=== PATIENT | male | born 1940 | race Caucasian/White ===

== ENCOUNTER 2019-07-23 23:31 | Inpatient (IN) | payer MEDICARE, BC ==
[2019-07-24 00:41] LABS: #Eosinphils 0.1 thou/uL (0.0-0.7); #Lymphocytes 1.3 thou/uL (1.20-3.40); #Monocytes 0.6 thou/uL (0.11-0.59); #Neutrophils 8.3 thou/uL (1.40-6.50); %Basophils 0.1 % (0.0-1.0); %Eosinophils 0.7 % (0.0-10.0); %Lymphocytes 12.8 % (21.0-51.0); %Monocytes 6.2 % (0.0-10.0); %Neutrophils 80.2 % (42.0-75.0); Hemoglobin 14.1 g/dL (14.0-18.0); Mean Corpuscular HGB CONC 33.5 g/dL (32.0-36.0); Mean Corpuscular Hemoglobin 30.9 pg (27.0-31.0); Mean Corpuscular Volume 92.2 fL (78.0-98.0); Mean Platelet Volume 6.4 fL (7.4-10.4); Platelet Count 216 thou/uL (130-400); Red Blood Cell (RBC) Count 4.55 mill/uL (4.70-6.10); White Blood Cell (WBC) Count 10.4 thou/uL (4.8-10.8)
[2019-07-24 00:48] LABS: Prothrombin Time 13.5 SEC (12.0-14.7)
[2019-07-24 00:49] LABS: PTT 28.9 SEC (22.9-36.1)
[2019-07-24 01:05] LABS: Magnesium 2.1 mg/dL (1.6-2.6); Phosphorus 2.9 mg/dL (2.3-4.7)
[2019-07-24 01:06] LABS: ALT (SGPT) 36 U/L (8-55); AST (SGOT) 24 U/L (5-34); Albumin 3.8 g/dL (3.4-4.8); Alkaline Phosphatase 142 U/L (40-110); Anion Gap 14 mmol/L (10-20); BUN (Urea Nitrogen) 22 mg/dL (8.4-25.7); Bilirubin, Total 0.7 mg/dL (0.2-1.2); Calc. Creatinine Clearance 0 mL/min (70-130); Calcium 9.2 mg/dL (7.8-10.44); Carbon Dioxide 21 mmol/L (23-31); Chloride 108 mmol/L (98-107); Estimated GFR-MDRD 56; Globulin 2.8 g/dL (2.4-3.5); Glucose 130 mg/dL (83-110); Potassium 4.3 mmol/L (3.5-5.1); Protein, Total 6.6 g/dL (5.8-8.1); Sodium 139 mmol/L (136-145)
[2019-07-24] MEDS ORDERED: Insulin Regular 300 UNITS/3 ML VIAL SC PRN ×2 (01:21)
[2019-07-24] MEDS ORDERED: Ondansetron ODT 4 MG TAB PO PRN (01:21)
[2019-07-24] MEDS ORDERED: Dextrose 50% Abboject 50 ML SYRINGE SLOW IVP PRN (01:21)
[2019-07-24] MEDS ORDERED: Morphine 2 MG/ML SYRINGE SLOW IVP PRN (01:21)
[2019-07-24] MEDS ORDERED: hydrALAZINE 20 MG/ML VIAL SLOW IVP PRN (01:21)
[2019-07-24] MEDS ORDERED: Dextrose 5% in Water 1,000 ML IV PRN (01:21)
[2019-07-24] MEDS ORDERED: Ondansetron PF 4 MG/2 ML Vial IVP PRN (01:21)
[2019-07-24] MEDS ORDERED: traMADol HCl 50 MG TAB PO PRN ×2 (01:27)
[2019-07-24] MEDS ORDERED: Sodium Chloride 0.9% 1,000 ML IV SCH (01:45)
[2019-07-24 02:34] VITALS: BMI 32.2
--- NOTE | 2019-07-24 02:48 | HP ---
This is Juanita Giordano NP dictating a report for Alejo Cancino DO. REQUESTING PHYSICIAN: Dr. Mitchell. CONSULTS: Orthopedic Surgery, Dr. Isaac. CHIEF COMPLAINT: Mechanical fall, right hip pain. HISTORY OF PRESENT ILLNESS: This is a 78-year-old gentleman with a history of Parkinson, hypertension, type 2 diabetes, and prostate cancer, who has had multiple recent falls within the last week. The patient lives at home with his and reports that he does not use any assistance to ambulate, but states he probably should use a cane when he ambulates. The patient has difficulty ambulating at times, states that his feet get to going too fast causing him to fall. The patient also had a fall 15 days ago in which he sustained a left clavicle fracture and rib fractures he was seen and treated by his his PCP Dr. Caba in [place]. The patient states he fell at least 12 times within the last week. He reports falling earlier today, presented to the emergency room in [place]. Initially, x-ray showed no abnormalities but the patient was unable to ambulate. CT without contrast of his pelvis was obtained and a right iliac wing fracture with acetabulum involvement was found. The patient was transferred to [facility] for further care. The patient states he bumped the right side of his head and had no loss of consciousness. The patient recalls falling and denies any chest pain, shortness of breath or dizziness prior to falling. The patient states that he ambulates without getting short of breath. The patient was walking and riding a stationary bike 30 minutes every day prior to him falling 15 days ago. A Menezes catheter was placed at [facility]. Nursing staff reports initially urine was clear and yellow. After arrival at [facility], ER nurse noticed blood-tinged urine. PAST MEDICAL HISTORY: Parkinson, hypertension, prostate cancer, and type 2 diabetes. 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 ALLERGIES: DENIES ANY DRUG ALLERGIES. MEDICATIONS: 1. Valsartan. 2. Flomax. 3. HCTZ. 4. Hydrocodone. 5. Bupropion. 6. Carbidopa/levodopa. 7. Pioglitazone, unknown doses. SOCIAL HISTORY: Denies alcohol use, denies drug use, denies tobacco use, lives at home with his . REVIEW OF SYSTEMS: A 10-point review of systems is negative unless otherwise indicated in the above HPI. PHYSICAL EXAMINATION: VITAL SIGNS: Temperature 98.2, blood pressure 118/75, pulse 90, respirations 17 , SpO2 of 98% on room air. GENERAL: Elderly gentleman, well-appearing, no acute distress. HEENT: Head is atraumatic and normocephalic. Pupils are equal. Mucous membranes moist. Oropharynx normal. NECK: No cervical spine tenderness. Trachea is midline. No JVD. Normal range of motion of neck. RESPIRATORY: Equal chest rise and fall, bilateral breath sounds clear. No wheezing, rales, or rhonchi. CARDIAC: Regular rate, regular rhythm, 3/6 systolic murmur. ABDOMEN: Soft, nontender, and nondistended. : Menezes catheter in place. Gross hematuria noted. EXTREMITIES: Moves all extremities. Distal pulses 2+ in all extremities. Sensation and movement intact. Right hip tenderness to palpation. Healing ecchymosis to the left shoulder and axilla. NEUROLOGIC: GCS 15. Fine tremors noted, worse in upper extremities. DIAGNOSTIC DATA: 12-lead EKG, sinus rhythm with first-degree AV block, no ST or T-wave abnormalities. Chest x-ray, left plural effusion. Brain CT impression no acute intracranial hemorrhage. Official reads pending. Pelvis CT with contrast pending. LABORATORY DATA: WBC 10.4, RBC 4.55, hemoglobin 14.1, hematocrit 42.0, platelets 216. PT 13.5, INR 1.0, APTT 28.9. Sodium 139, potassium 4.3, chloride 108, carbon dioxide 21, BUN 22, creatinine 1.24, estimated GFR 56, glucose 130, calcium 9.2, phosphorus 2.9, magnesium 2.1, total bilirubin 0.7, AST 24, ALT 36, alkaline phos 142. Urinalysis is pending. IMPRESSION: 1. Status post mechanical fall with multiple recent falls. 2. Right iliac wing fracture with involvement of the acetabulum. 3. Subacute left clavicle fracture and rib fractures, status post fall 15 days ago. 4. Gross hematuria. 5. Left plural effusion likely secondary to rib fractures. 6. History of Parkinson, hypertension, type 2 diabetes, and prostate cancer. PLAN: CT pelvis with contrast and head CT pending. Admit to the surgical floor. Waiting for Orthopedic Surgery to evaluate and make a plan. The patient will be n.p.o. after midnight with maintenance IV fluids, normal saline at 120 an hour. Mild insulin sliding scale. Pain control and pulmonary toilet. We will have Physical and Occupational Therapy evaluate and treat the patient tomorrow. Nursing staff to get with the patients today to get medication dosages. The plan was discussed with the patient who agrees. The plan will be discussed with the attending after this dictation. Job ID: [id number] [facility]
[2019-07-24 03:12] LABS: Bilirubin Negative (Negative); Blood, Urine Moderate (Negative); Clarity Hazy (Clear); Glucose, Urine (Dipstick) Negative (Negative); Leukocyte Trace (Negative); Nitrite Negative (Negative); Protein, Urine (Dipstick) > or equal to 300 mg/dL (Neg-Trace); Urobilinogen 0.2 mg/dL (Less than 2)
[2019-07-24 03:24] LABS: RBC/HPF Greater than 50 HPF (0-3)
[2019-07-24] MEDS: Acetaminophen 500 MG TAB PO SCH ×3 (04:11→19:10)
[2019-07-24] MEDS: Cyclobenzaprine 10 MG TAB PO PRN ×2 (04:12→19:39)
[2019-07-24 05:43] LABS: #Eosinphils 0.1 thou/uL (0.0-0.7); #Lymphocytes 1.4 thou/uL (1.20-3.40); #Monocytes 0.7 thou/uL (0.11-0.59); #Neutrophils 8.2 thou/uL (1.40-6.50); %Basophils 0.1 % (0.0-1.0); %Eosinophils 0.7 % (0.0-10.0); %Lymphocytes 13.4 % (21.0-51.0); %Monocytes 6.9 % (0.0-10.0); Hemoglobin 13.2 g/dL (14.0-18.0); Mean Corpuscular HGB CONC 34.4 g/dL (32.0-36.0); Mean Corpuscular Hemoglobin 31.4 pg (27.0-31.0); Mean Corpuscular Volume 91.3 fL (78.0-98.0); Mean Platelet Volume 6.7 fL (7.4-10.4); Platelet Count 199 thou/uL (130-400); RBC Distribution Width 11.9 % (11.5-14.5); Red Blood Cell (RBC) Count 4.22 mill/uL (4.70-6.10); White Blood Cell (WBC) Count 10.4 thou/uL (4.8-10.8)
[2019-07-24 05:59] LABS: Anion Gap 12 mmol/L (10-20); BUN (Urea Nitrogen) 19 mg/dL (8.4-25.7); Calc. Creatinine Clearance 73 mL/min (70-130); Calcium 8.8 mg/dL (7.8-10.44); Carbon Dioxide 23 mmol/L (23-31); Chloride 108 mmol/L (98-107); Estimated GFR-MDRD 59; Glucose 113 mg/dL (83-110); Potassium 4.3 mmol/L (3.5-5.1); Sodium 139 mmol/L (136-145)
--- NOTE | 2019-07-24 09:02 | CT ---
PRELIMINARY REPORT/[facility]/EMERGENCY AFTER HOURS PROCEDURE EXAM: CT Head, without Contrast DATE/ TIME: 07/24/2019, 1:48 AM INDICATION: Trauma, unwitnessed fall with right-sided head strike. H/O multiple falls within the . TECHNIQUE: Axial CT imaging was performed through the head without intravenous administration of con trast. Exam was performed using one or more of the following dose reduction techniques: automated e xposure control, adjustment of the mA and/or kV according to patient size, or use of iterative recons truction technique. COMPARISON: None. FINDINGS: There is no intracranial hemorrhage. Benign hyperostosis frontalis interna masks the degr ee of atrophy which is considered mild. There is no CT evidence of an acute infarct. There is no ma ss or mass effect. 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 Imaging begins at the mid maxillary level. Orbital structures are unremarkable. Cranial vault demonstrates no evidence o f fracture. Mastoid air cells are well-aerated. Visualized sinuses are clear. IMPRESSION: 1. CT imaging shows no acute intracranial abnormality. 2. Mild atrophy with intracranial ASVD. ELECTRONICALLY SIGNED BY: Marty Rodriguez DO Jul 24, 2019 1:55:19 AM CDT FINAL REPORT CT OF THE BRAIN WITHOUT CONTRAST: FINDINGS/IMPRESSION: I agree with the findings and impression given in the preliminary report per [facility] physici an. No evidence of acute intracranial abnormality.
--- NOTE | 2019-07-24 09:02 | CT ---
PRELIMINARY REPORT/[facility]/EMERGENCY AFTER HOURS PROCEDURE EXAM: CT Abdomen and CT Pelvis, with Contrast DATE/ TIME: 07/24/2019, 1:51 AM INDICATION: Trauma, unwitnessed fall. Right hip pain. H/O multiple falls within the last week. TECHNIQUE: Helical CT was performed through the abdomen and pelvis during the intravenous administra tion of 70 mL Isovue-370. GI contrast was not utilized. Coronal and sagittal reconstructions were g enerated and reviewed. Exam was performed using one or more of the following dose reduction techniqu es: automated exposure control, adjustment of the mA and/or kV according to patient size, or use of iterative reconstruction technique. COMPARISON: None. CT ABDOMEN and CT PELVIS FINDINGS: The initial images begins at the aortic sinotubular junction. Ao rtic valvular calcification is seen. Calcified atheroma in the right coronary artery is noted. Laye ring left pleural effusion measures 2 cm in depth. Mild subpleural atelectasis in the left lung base is noted. Right lung base is clear. There are acute fractures of the anterolateral aspect of the l eft 5th, 6th and 7th ribs. Healed bilateral rib fractures are noted. Small hiatal hernia is noted. I ntestinal tract and associated mesenteries show no acute pathology. The appendix is normal. Abdomin al aorta tapers normally; there is no retroperitoneal hemorrhage. Inferior vena cava is not flattene d. There is no solid visceral injury. Spleen measures 14.0 x 4.6 x 9.0 cm. Pancreas is moderately a trophic. Gallbladder is unremarkable. Liver and adrenal glands have a normal appearance. Left kidn ey has two small calyceal calculi measuring up to 4 mm. Right kidney has a 3 mm calyceal calculus in the upper pole. Right kidney also has two cysts with the largest measuring 5.1 x 4.1 x 4.4 cm. Pros whitaker gland measures 5.3 cm in greatest transaxial dimension. Its central portion protrudes upwardly into the bladder. A Menezes catheter is indwelling. There appears to be some blood subjacent to the F oley bulb. Perivesicular retroperitoneal stranding is seen. This is due to a nondisplaced, intra-ar ticular fracture of the right innominate bone with the fracture line through the acetabulum. A small amount of presacral edema fluid is seen. Three cannulated screws are noted within each proximal fem ur. The spine shows marked lumbar facet arthropathy. IMPRESSION: 1. Nondisplaced intra-articular fracture of the right innominate bone. 2. Left rib fractures. 3. Bilateral nonobstructing nephrolithiasis. 4. Small left pleural effusion. 5. Mild prostatomegaly. 6. Mild splenomegaly. 7. No evidence of solid or hollow visceral injury. ELECTRONICALLY SIGNED BY: Marty Rodriguez DO Jul 24, 2019 2:17:14 AM CDT FINAL REPORT CT ABDOMEN AND PELVIS WITH IV CONTRAST: I agree with the preliminary report given by [facility]. There are also fractures involving th e right superior and inferior pubic rami and old healed fractures of the left inferior pubic ramus.
[2019-07-24] MEDS ORDERED: Iopamidol-370 76% 500 ML 1 ML ONE (09:23)
--- NOTE | 2019-07-24 09:46 | RAD ---
PORTABLE CHEST 1 VIEW: DATE: 07/24/2019. TIME: 12:25 AM. HISTORY: Fall with trauma to the right side of the head and right-sided head pain. FINDINGS/IMPRESSION: The heart size is prominent. A small left pleural effusion is noted. No lobar consolidation, pneumo thoraces, or right pleural effusion is seen. There are postop changes in the right shoulder. A frac ture of the left clavicle is seen. CODE T
[2019-07-24] MEDS ORDERED: Bupropion 150 MG SR TAB PO SCH (10:00)
[2019-07-24] MEDS ORDERED: Carbidopa/Levodopa 25-250 mg Tablet PO SCH ×2 (10:00→21:00)
[2019-07-24] MEDS ORDERED: Tamsulosin HCl 0.4 MG CAP PO SCH (10:00)
[2019-07-24] MEDS ORDERED: Hydrochlorothiazide 25 MG TAB PO SCH (10:00)
[2019-07-24] MEDS ORDERED: Valsartan 80 MG TAB PO SCH (10:00)
[2019-07-24] MEDS: Senokot S 8.6-50 MG TAB PO SCH ×2 (10:17→19:40)
[2019-07-24] MEDS: Polyethylene Glycol 3350 17 GM Packet PO SCH ×2 (10:17→10:31)
--- NOTE | 2019-07-24 11:53 | CON ---
DATE OF CONSULTATION: 07/24/2019 This is Randi Moore PA-C dictating a report for Lincoln Bledsoe MD. REQUESTING PHYSICIAN: Trauma Services. CONSULTING PHYSICIAN: Dr. Lincoln Bledsoe. REASON FOR CONSULTATION: Right acetabulum fracture. HISTORY OF PRESENT ILLNESS: This is a 78-year-old gentleman with a history of Parkinson disease, who has had multiple recent falls within the last week. The patient lives at home with his and reports he does not normally use any assistance to ambulate, but states he should probably be using a cane. He has difficulty ambulating at times, stating that his feet going too fast, which causes him to fall. He does report he fell approximately 2 weeks ago and sustained a left clavicle fracture as well as multiple rib fractures. He was seen and treated by his PCP, Dr. Caba in [place] at that time. He also states he has fallen multiple times within the last week. The patient fell and was brought to the emergency department for specifically right hip pain. The patient states he was unable to bear weight onto his right leg. Workup in the emergency department showed a nondisplaced right acetabular fracture. We have been consulted for this reason. Currently at bedside, the patient reports that he has been having trouble walking and falling, which seem to be worsening over the last couple of weeks. He reports a history of old right rotator cuff tear, in which, he cannot lift his right arm. The recent fall in which he broke his left clavicle has rendered him unable to lift his left arm, and this most recent fall has left him unable to bear weight onto his right lower extremity. He denies pain at rest. No numbness, no tingling into his foot or toes. Of note, further workup in the emergency department showed that he has had some blood-tinged urine. He does have a history of prostate cancer. PAST MEDICAL HISTORY: Parkinson disease, hypertension, prostate cancer, and type 2 diabetes. 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 ALLERGIES: NO KNOWN DRUG ALLERGIES. SOCIAL HISTORY: Lives at home with his . Denies any alcohol, tobacco, or drug use. FAMILY HISTORY: Reviewed and noncontributory. REVIEW OF SYSTEMS: Ten-point review of systems conducted and otherwise negative except for stated above. CURRENT PHYSICAL EXAMINATION: VITAL SIGNS: Shows vital signs including temperature of 97.7, pulse of 90, respiratory rate of 18, O2 saturations of 93% on room air, and blood pressure 117/61. GENERAL: The patient is awake and alert. He is in no apparent distress. He is pleasant and cooperative with exam today and answers all questions appropriately. HEENT: Head is normocephalic and atraumatic. NECK: Supple. Trachea midline. Breathing is nonlabored. EXTREMITIES: Evaluation of all 4 extremities shows limited active motion of the bilateral upper extremities. The patient is mildly tender to palpation over the left clavicle. Evaluation of the right lower extremity shows a negative log roll exam. The patient is able to actively move his toes as well as his ankle. With active flexion of the knee and flexion of the hip, this reproduces pain. Some pain with passive range of motion of the hip including external rotation. No pain with flexion or extension of the hip. Left lower extremity shows no acute injuries. LABORATORY DATA: Radiographic findings which were reviewed today with Dr. Bledsoe show evidence of a nondisplaced right acetabulum fracture that extends up to the iliac wing. This was reviewed on CT evaluation. Chest x-ray shows a healing midshaft left clavicle fracture with some displacement. ASSESSMENT: 1. Right acetabulum fracture, nondisplaced. 2. Subacute left clavicle fracture. PLAN: At this point, the patient's right acetabular fracture appears nondisplaced. We would like to treat this nonoperatively and limit weightbearing to the right lower extremity allowing this fracture to heal on its own. Due to the patient's overall health including Parkinson disease as well as recent clavicle fracture and history of rotator cuff injuries, the patient does not have much functional use of his upper extremities. We will have the physical therapist work with him mainly on [id number] transfers as mobility will be an issue. Again, we will plan for non-operative management of this patient at this time. We will continue to follow him. Plan for followup in the Orthopedic Clinic to monitor his fracture. All questions have been answered at bedside at this point. Thank you for this consultation. Job ID: [id number]
--- NOTE | 2019-07-24 13:37 | PRG ---
DATE OF SERVICE: 07/24/2019 SUBJECTIVE: The patient was seen this morning during rounds. He was sitting up in bed with no signs of acute distress. He reported his pain was well controlled as long as he did not move. He states that he has been n.p.o. and has not had anything to eat since admission. Upon further asking about cardiac related issues due to his multiple recent falls, who denies chest pain, nausea, vomiting, or shortness of breath. He does have bilateral lower extremity pitting edema, which he says is chronic and takes Lasix for. EKG demonstrated a first degree AV block. The patient has a history of hypertension and diabetes as well as a recent Parkinson's diagnosis. He reports all of his falls over the past week have been due to mechanical reasons associated with Parkinson's. OBJECTIVE: VITAL SIGNS: Temperature 97.7, pulse 90, respirations 18, oxygen saturation 93% on room air, and blood pressure 117/61. GENERAL: Elderly male, sitting up in bed with no signs of acute distress. PULMONARY: Equal chest rise and fall. No signs of acute respiratory distress. CARDIAC: Regular rate and rhythm. No murmurs, gallops, or rubs. GI: Abdomen is soft, nontender, and nondistended. EXTREMITIES: 2+ pulses in all extremities. He has 2+ pitting edema to the bilateral lower extremities which is chronic. Gross motor and sensation intact. LABORATORY FINDINGS: White count 10.4, hemoglobin 13.2, hematocrit 38.5, and platelets 199. Sodium 139, potassium 4.3, chloride 108, bicarb 23, BUN 19, creatinine 1.2, and glucose 113. DIAGNOSTIC FINDINGS: There are no new diagnostic findings to report. ASSESSMENT: 1. Status post multiple recent falls. 2. Right iliac wing fracture with involvement of the acetabulum. 3. Recent history of left clavicle and rib fractures. 4. Hematuria, likely traumatic from Menezes placement. 5. History of Parkinson's, hypertension, diabetes, benign prostatic hyperplasia, and bilateral hip pain. PLAN: The patient will be advanced to a diabetic diet. Discontinue IV fluids. Restart home medications. We will hold the patient's home Lasix for now. Consider restarting them tomorrow as indicated. Discontinue Menezes and follow void checks. He is to receive an echo today. We will also start the process of finding a placement at either a skilled or acute rehab facility. He will be nonweightbearing to the bilateral lower extremities and such. We will wait for PT evaluation to make further recommendations on discharge planning. This patient was seen and examined by Dr. Miranda and myself this morning during rounds. Job ID: [id number]
--- NOTE | 2019-07-24 16:49 | RAD ---
PELVIC RADIOGRAPH: Date: 07-24-2019 Provided Clinical History: Pelvic fracture. FINDINGS: Correlation is made with the CT examinations dated 07-24-2019 and 07-23-2019. Anterior column right acetabular fracture is poorly demonstrated radiographically due to body habitus and portable technique. Bilateral cannulated partially threaded lag screws are noted involving each femoral neck. Hip joint spaces appear maintained. IMPRESSION: Nondisplaced anterior column right acetabular fracture is better demonstrated on prior CT examination . POS: KAREN
[2019-07-24] MEDS: Bupropion 150 MG SR TAB PO SCH (19:39)
[2019-07-24] MEDS: Carbidopa/Levodopa 25-250 mg Tablet PO SCH (19:40)
[2019-07-24] MEDS ORDERED: Non-Formulary Item 1 EACH (Bupropion Hcl [Bupropion Hcl Sr] 1 TAB) PO SCH (21:00)
[2019-07-25] MEDS: Acetaminophen 500 MG TAB PO SCH ×5 (00:05→23:41)
--- NOTE | 2019-07-25 01:39 | PRG ---
DATE OF SERVICE: SUBJECTIVE: Patient was seen during evening rounds. Awake, alert, in no distress. Patient is hospital day 1 status post mechanical fall. Patient sustained a right iliac wing fracture with involvement of acetabulum. Patient is currently nonoperative at this time. Patient's Menezes catheter remains in place and appears to be clearing as he had gross hematuria yesterday. Patient is pending echocardiogram due to first-degree AV block, new cardiac murmur and multiple falls. OBJECTIVE: VITAL SIGNS: Stable, afebrile. GENERAL: Elderly male, lying in hospital bed, in no acute distress. PULMONARY: Equal chest rise and fall, bilateral breath sounds clear. No wheezing, rales, or rhonchi. CARDIAC: Regular rate and regular rhythm, 3/6 systolic murmur, mild pedal edema. EXTREMITIES: Distal pulses intact. No focal deficits. Gross motor and sensation intact. Strength 5/5 in all extremities. DIAGNOSTICS: Repeat pelvis x-ray nondisplaced anterior column right acetabular fracture is better demonstrated on prior CT examination. ASSESSMENT: 1. Status post multiple recent falls. 2. Right iliac wing fracture with involvement of the acetabulum, nonoperative. 3. Recent history of left clavicle and rib fractures. 4. Hematuria, likely traumatic Menezes placement. 5. History of Parkinson's, hypertension, diabetes, benign prostatic hyperplasia, and bilateral hip repairs with pins. PLAN: Continue diabetic diet. Continue pain regimen and pulmonary toilet. Plan to DC patient's Menezes catheter in the morning, if it continues to be clear. Repeat chest x-ray in the morning. Patient is nonweightbearing to bilateral lower extremities and nonoperative per Orthopedic Surgery at this time. Patient is pending placement. Job ID: [id number]
[2019-07-25] MEDS: Cyclobenzaprine 10 MG TAB PO PRN ×2 (04:19→17:51)
[2019-07-25 05:10] LABS: #Eosinphils 0.2 thou/uL (0.0-0.7); #Lymphocytes 1.4 thou/uL (1.20-3.40); #Monocytes 0.7 thou/uL (0.11-0.59); #Neutrophils 8.1 thou/uL (1.40-6.50); %Basophils 0.3 % (0.0-1.0); %Eosinophils 1.9 % (0.0-10.0); %Lymphocytes 13.2 % (21.0-51.0); %Monocytes 6.6 % (0.0-10.0); Hemoglobin 13.3 g/dL (14.0-18.0); Mean Corpuscular HGB CONC 33.3 g/dL (32.0-36.0); Mean Corpuscular Hemoglobin 30.7 pg (27.0-31.0); Mean Corpuscular Volume 92.3 fL (78.0-98.0); Mean Platelet Volume 6.7 fL (7.4-10.4); Platelet Count 196 thou/uL (130-400); RBC Distribution Width 12.2 % (11.5-14.5); Red Blood Cell (RBC) Count 4.33 mill/uL (4.70-6.10); White Blood Cell (WBC) Count 10.4 thou/uL (4.8-10.8)
[2019-07-25 05:26] LABS: Anion Gap 13 mmol/L (10-20); BUN (Urea Nitrogen) 20 mg/dL (8.4-25.7); Calc. Creatinine Clearance 73 mL/min (70-130); Calcium 8.9 mg/dL (7.8-10.44); Carbon Dioxide 21 mmol/L (23-31); Chloride 109 mmol/L (98-107); Estimated GFR-MDRD 59; Glucose 108 mg/dL (83-110); Magnesium 2.2 mg/dL (1.6-2.6); Phosphorus 3.4 mg/dL (2.3-4.7); Potassium 3.9 mmol/L (3.5-5.1); Sodium 139 mmol/L (136-145)
--- NOTE | 2019-07-25 08:01 | RAD ---
PORTABLE CHEST: DATE: 07/25/2019. PROVIDED CLINICAL HISTORY: Shortness of breath. FINDINGS: Comparison 07/24/2019. Significant interval change with respect to the prior examination is not appar ent. IMPRESSION: As above. POS: KAREN
[2019-07-25] MEDS: Polyethylene Glycol 3350 17 GM Packet PO SCH (08:38)
[2019-07-25] MEDS: Senokot S 8.6-50 MG TAB PO SCH ×2 (08:39→20:35)
[2019-07-25] MEDS: Bupropion 150 MG SR TAB PO SCH ×2 (08:39→20:41)
[2019-07-25] MEDS: Enoxaparin Sodium 40 MG/0.4 ML SYRINGE SC SCH (08:39)
[2019-07-25] MEDS: Carbidopa/Levodopa 25-250 mg Tablet PO SCH ×2 (08:41→20:35)
[2019-07-25] MEDS: Hydrochlorothiazide 25 MG TAB PO SCH (08:41)
[2019-07-25] MEDS: Valsartan 80 MG TAB PO SCH (08:42)
[2019-07-25] MEDS: Tamsulosin HCl 0.4 MG CAP PO SCH (08:42)
[2019-07-25] MEDS ORDERED: Hydrochlorothiazide 25 MG TAB PO SCH (09:00)
[2019-07-25] MEDS ORDERED: Valsartan 80 MG TAB PO SCH (09:00)
[2019-07-25] MEDS ORDERED: Non-Formulary Item 1 EACH (Valsartan/Hydrochlorothiazide [Valsartan-Hctz 160-12.5 Mg Tab] PO SCH (09:00)
--- NOTE | 2019-07-25 19:18 | PRG ---
DATE OF SERVICE: 07/25/2019 This is Boogie Gong PA-C dictating a report for Alejo Cancino DO. SUBJECTIVE: Mr. Zuniga is a 78-year-old male with status post multiple falls. The patient sustained a pelvic fracture with old left clavicle and left rib fracture. The patient also experienced gross hematuria possibly from Menezes placement or a pelvic fracture. The patient reports pain was well controlled. He tolerated with regular diet. His vital signs have been stable. He developed no fever or shortness of breath. OBJECTIVE: GENERAL: Currently, the patient is lying in bed, comfortable with no acute respiratory distress. VITAL SIGNS: Temperature 97.6, heart rate 71, respiratory rate 16, O2 saturation 94% on room air, and blood pressure 115/59. LUNGS: Clear bilaterally. HEART: Irregular rate, irregular rhythm. ABDOMEN: Soft, nondistended. EXTREMITIES: Neurovascularly intact x4. NEUROLOGIC: No focal neurology deficits. ASSESSMENT: 1. Status post mechanical fall. 2. Right iliac wing fracture with acetabulum fracture, conservative treatment. 3. Gross hematuria. 4. History of Parkinson's, hypertension, diabetes, and benign prostatic hypertrophy. PLAN: Plan will be Urology consult for persistent hematuria. We will check CBC tomorrow. Encourage working with physical therapy and occupational therapy. Anticipate placement in a group home home facility for the next 24 to 48 hours. The patient was seen and evaluated with Dr. Cancino on round this morning. Job ID: [id number]
[2019-07-26] MEDS ORDERED: Furosemide 40 MG TAB PO PRN (01:33)
[2019-07-26 03:06] LABS: Bacteria/HPF None Seen HPF (None Seen); Bilirubin Negative (Negative); Blood, Urine 3+ (Negative); Clarity Turbid (Clear); Glucose, Urine (Dipstick) Normal (Negative); Leukocyte 75 Leu/uL (Negative); Nitrite Negative (Negative); Protein, Urine (Dipstick) 30 mg/dL (Neg-Trace); RBC/HPF Greater than 50 HPF (0-3); Squamous Epithelial None Seen HPF (0-3); Urobilinogen Normal mg/dL (Less than 2); WBC/HPF 21-50 HPF (0-3)
--- NOTE | 2019-07-26 03:08 | PRG ---
DATE OF SERVICE: 07/26/2019 SUBJECTIVE: The patient is hospital day #2 status post ground level fall, which he sustained a right iliac wing fracture, right acetabular fracture and has a subacute left clavicle fracture. Of note, the patient when he had his Menezes placed in the emergency department, had gross hematuria noted. OBJECTIVE: VITAL SIGNS: Stable. The patient is afebrile. GENERAL: The patient is currently asleep. The nurses stated that he is fall asleep shortly after getting his evening medications, stated he is tolerating a diet and his pain is being controlled. The patient appears to be resting comfortably in bed. LUNGS: His respirations are nonlabored. ABDOMEN: Soft and nondistended. EXTREMITIES: Neurovascularly intact x4 as he was seen moving all 4 extremities. His Menezes catheter, the urine is yellow in color, there does not appear to be any gross hematuria at this time. ASSESSMENT: 1. Status post ground level fall. 2. Right acetabular fracture, being treated nonoperatively. 3. Right iliac wing fracture, conservative treatment. 4. Subacute left clavicle fracture, sling for comfort. 5. Gross hematuria, resolving. PLAN: Plan will be to continue supportive care. Encourage physical and occupational therapy. Repeat urinalysis with culture to assess his hematuria. Job ID: [id number]
[2019-07-26] MEDS: Cyclobenzaprine 10 MG TAB PO PRN (03:32)
[2019-07-26] MEDS: Acetaminophen 500 MG TAB PO SCH ×2 (05:18→14:15)
[2019-07-26 05:48] LABS: #Eosinphils 0.3 thou/uL (0.0-0.7); #Lymphocytes 1.4 thou/uL (1.20-3.40); #Monocytes 0.6 thou/uL (0.11-0.59); #Neutrophils 5.2 thou/uL (1.40-6.50); %Basophils 0.2 % (0.0-1.0); %Lymphocytes 19.1 % (21.0-51.0); %Monocytes 7.7 % (0.0-10.0); Hemoglobin 13.2 g/dL (14.0-18.0); Mean Corpuscular HGB CONC 32.9 g/dL (32.0-36.0); Mean Corpuscular Hemoglobin 30.5 pg (27.0-31.0); Mean Corpuscular Volume 92.8 fL (78.0-98.0); Mean Platelet Volume 6.7 fL (7.4-10.4); Platelet Count 208 thou/uL (130-400); RBC Distribution Width 12.1 % (11.5-14.5); Red Blood Cell (RBC) Count 4.32 mill/uL (4.70-6.10); White Blood Cell (WBC) Count 7.5 thou/uL (4.8-10.8)
[2019-07-26] MEDS: Enoxaparin Sodium 40 MG/0.4 ML SYRINGE SC SCH (08:52)
[2019-07-26] MEDS: Hydrochlorothiazide 25 MG TAB PO SCH (08:52)
[2019-07-26] MEDS: Polyethylene Glycol 3350 17 GM Packet PO SCH (08:52)
[2019-07-26] MEDS: Valsartan 80 MG TAB PO SCH (08:53)
[2019-07-26] MEDS: Bupropion 150 MG SR TAB PO SCH (08:53)
[2019-07-26] MEDS: Senokot S 8.6-50 MG TAB PO SCH (08:53)
[2019-07-26] MEDS: Carbidopa/Levodopa 25-250 mg Tablet PO SCH (08:54)
[2019-07-26] MEDS: Tamsulosin HCl 0.4 MG CAP PO SCH (08:54)
[2019-07-26] MEDS ORDERED: Dutasteride 0.5 MG CAP PO SCH (09:00)
--- NOTE | 2019-07-26 11:28 | CON ---
DATE OF CONSULTATION: 07/26/2019 This is a 78-year-old white male. I was asked to see today because of gross hematuria and a pelvic fracture. He looks like he came in on the that be a couple of days ago, but I think he actually maybe had an injury the day before that. He fell at home, he has been falling at home. He had right hip pain, went to [facility], I believe had a Menezes catheter placed there, and had some blood in the urine, this is all I am getting mainly from records. He may have been there actually twice and then gone back with pain. He was found to have a right iliac wing and acetabular fracture. He has been seen by Orthopedic Surgery here and there are not any plans for surgery. It is going to probably something that will heal on its own with time. He also on his CAT scan has a right superior and inferior pubic rami fracture. He has hematoma adjacent to this, somewhat abuts the right side of the bladder. A CAT scan of the abdomen and pelvis done, did not show any evidence of a significant amount of fluid in his belly to suggest intraperitoneal rupture. He has some right renal cysts and has some small bilateral renal stones. His urine is just currently, apparently it was worse than this, I guess after the catheter was placed. He is currently at bed rest. He has a history of prostate cancer. He was treated a number of years ago by Dr. Carlin of [facility]; his urologist, Dr. Messer in [place]. The patient says he still sees Dr. Messer as far as he knows his PSA testing have all been fine. He does not known to have metastatic disease. His urinary history has a lot of urinary frequency and urgency, voids about every 2 hours during the day and during the night with occasional leakage of urine. He has had no dysuria, no urinary tract infections, no stone disease that he knows off, though he has some small ones on his CAT scan, and no history of prior blood in the urine. He has not smoked cigarettes. His hemoglobin is fine. Coagulation studies were normal. White count was normal. Urinalysis had many red cells, few white cells, no bacteria. Creatinine was normal on two checks. On his exam, abdomen is somewhat obese, but there is no significant tenderness. There is really not a lot of tenderness on palpation of his pubic rami, he has little bit on the right side. He has a little bit of bruising just below the mons, at the junction of the penis and the mons dorsally. He does not have any scrotal hematoma nor any perineal hematoma. Testicles are descended, it is somewhat atrophic, but without mass or tenderness. Rectal exam reveals normal tone, some soft stool, no rectal lesions, and a flat prostate, it appears to be in normal position. I reviewed his CAT scan, where he had a catheter in, and he had pelvic fracture and gross hematuria. We will ask Radiology to do a cystogram just to make sure he does not have an extraperitoneal bladder injury. At least, this would give us some idea of when it be reasonable to give him a voiding trial. At his age with a pelvic fracture, he may have difficulty urinating, so we will probably give him another few days with the catheter in and see how he is doing. He is getting around how much pain medication is he taking. I will follow along with you. ADDENDUM: I reviewed his cystogram with Dr. Estrada. 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 I did review his records from [facility] to see if I could find any information from their hospital system on him, but I cannot, so I do not know if he has had a TURP done or not or when it was done, but it certainly looks like a TUR defect. There was a small capacity bladder with two small bladder diverticula. There is no evidence of any bladder leak. He does have a very small capacity bladder, which goes along with his urinary frequency. Dr. Estrada is able to advance the Menezes catheter into the bladder and I had him placed about 15 mL in the balloon to hopefully keep it from pulling down into the prostate. So, there is no evidence of a bladder rupture, the hematuria may have been related to the position of the balloon in his prostatic urethra. I talked with the nurse and she says that he did pass a few clots that were not very big, and his urine is scottie color. I think he should leave this catheter in until he is starting to recover from the acetabular fracture enough that he is not taking a lot of pain medications or narcotics. I would think in the next 5 days or so, he could have a voiding trial done and can follow up with Dr. Messer, his urologist in [place]. It is fine by my standpoint if he goes to rehab today. Job ID: [id number]
[2019-07-26] MEDS ORDERED: Iopamidol-370 76% 500 ML 1 ML ONE (11:44)
--- NOTE | 2019-07-26 12:46 | EKG ---
Test Reason : Blood Pressure : / mmHG Vent. Rate : 085 BPM Atrial Rate : 085 BPM P-R Int : 204 ms QRS Dur : 096 ms QT Int : 386 ms P-R-T Axes : 036 -03 046 degrees QTc Int : 459 ms Normal sinus rhythm Normal ECG When compared with ECG of 24-JUL-2019 00:23, (Unconfirmed) TX interval has increased Confirmed by DR. Ykuo SAGASTUME ([id number]) on 07/26/2019 12:46:27 PM Referred By: CHERIE ROWLAND Confirmed By:DR. Yuko SAGASTUME
--- NOTE | 2019-07-26 14:35 | RAD ---
EXAM: XR Cystogram STANDARD PROVIDED CLINICAL HISTORY: Patient with recent pelvic fracture and now with gross hematuria. COMPARISON: None FINDINGS: Kiln Drawer image of the abdomen demonstrates 3 long screws transfixing each femoral neck and femoral head. Degenerative changes are seen in the spine and at the pubic symphysis. Fracture involving the right supra-acetabular region is better delineated on CT examination obtained on 07/24/2019. Vascular calcifications are seen in the abdominal aorta and iliac arteries. Small amount of retained fecal material is seen throughout the colon. A cystogram was performed in usual fashion via a [facility]rograde administration of approximately 100 mL of Omnipaque 300 contrast was instilled into the urinary bladder. The patient was unable to tolerate more than 100 mL of contrast in the urin mónica bladder. Urinary bladder demonstrates scattered diverticuli. There is a dumb-bahena shaped appearance of the urinary bladder with Menezes catheter present in the lower portion of the urinary raúl dder. This may be attributable to either incomplete distention of the base of the urinary bladder, but prior surgery related to TURP defect is a possibility with the balloon on the Menezes catheter pres ent in the fossa of the defect. Findings were reviewed with Dr. Canela at this time. Dr. Canela requested advancement of the Menezes catheter. As a result, the saline in the balloon of Menezes catheter was removed, and the Menezes catheter was advanced into the more superior aspect of the urinary bladder. Approximately 15 mL of sterile water was then instilled into the balloon of the Menezes cathet er. Final image demonstrates contrast within the urinary bladder with the balloon on the Menezes catheter now seen in the more superior aspect of the urinary bladder. Contrast was drained from the u rinary bladder with complete emptying of the urinary bladder. Patient tolerated the procedure well and without difficulty. IMPRESSION: 1. Only 100 mL of contrast was able to be instilled into the urinary bladder prior to patient discomf ort. No extravasation of contrast was seen from the urinary bladder on this examination. 2. Dumb-bahena shaped appearance of the urinary bladder with the balloon of the Menezes catheter seen wit hin the lower portion of the dumb-bahena shaped portion of the urinary bladder. This appearance could be related to incomplete distention of the urinary bladder, but findings could potentially be related to prior defect from prior TURP procedure. Clinical correlation is recommended. 3. Advancement of the Menezes catheter was performed with the balloon of the Menezes catheter positioned in the larger more superior portion of the urinary bladder, and the distal balloon was instilled with 15 mL of sterile water.
--- NOTE | 2019-07-26 14:54 | EKG ---
Test Reason : Blood Pressure : / mmHG Vent. Rate : 092 BPM Atrial Rate : 092 BPM P-R Int : 000 ms QRS Dur : 090 ms QT Int : 372 ms P-R-T Axes : 067 -04 030 degrees QTc Int : 460 ms Sinus rhythm with 1st degree A-V block No STEMI Otherwise normal ECG Confirmed by JOSE SIDHU M.D. ([id number]), acquisition editor ONEIL GUERRERO ([id number]) on 07/26/2019 2:53:40 PM Referred By: Confirmed By:JOSE SIDHU M.D.
[2019-07-26 15:42] VITALS: BP 121/73; TEMP 97.8
== END 2019-07-26 15:44 | DRG 535 ==
LOC: ERS 23:31 → SURG B 07-24 00:35 → OBSVTOIN 07-24 01:21 → SURG A 07-24 14:53
PROVIDERS: ADMIT Surgery; ATTEND Surgery
DX: S32.391A Other fracture of right ilium, initial encounter for closed fracture (principal); S32.434A Nondisplaced fracture of anterior column [iliopubic] of right acetabulum, initial encounter for closed fracture; S22.42XA Multiple fractures of ribs, left side, initial encounter for closed fracture; S32.591A Other specified fracture of right pubis, initial encounter for closed fracture; G20 Parkinson's disease; I10 Essential (primary) hypertension; E11.9 Type 2 diabetes mellitus without complications; R29.6 Repeated falls; N40.0 Benign prostatic hyperplasia without lower urinary tract symptoms; S42.002A Fracture of unspecified part of left clavicle, initial encounter for closed fracture; W18.30XA Fall on same level, unspecified, initial encounter; R31.0 Gross hematuria; J91.8 Pleural effusion in other conditions classified elsewhere; N40.1 Benign prostatic hyperplasia with lower urinary tract symptoms; R35.0 Frequency of micturition; Z85.46 Personal history of malignant neoplasm of prostate; Z89.421 Acquired absence of other right toe(s); Z79.899 Other long term (current) drug therapy
CPT/HCPCS: 36415; 36416; 51600; 70450; 71045; 72170; 74177; 74430; 80048; 80053; 81001; 83735; 83880; 84100; 85025; 85610; 85730; 87086; 93005; 93010; 93306; J1650; J2270; Q9967

== ENCOUNTER 2021-06-13 17:24 | Inpatient (IN) | payer MEDICARE, BC ==
[2021-06-13 17:59] LABS: Actual Bicarbonate (HCO3a) 20.6 mEq/L (22-28); Analyzer IN Cardio ER; Base Excess (BEa) -3.4 mEq/L (-2.0 to +3.0); CO2 Tension 34.3 mmHg (35.0-45.0); Calcium, Ionized (arterial) 1.15 mmol/L (1.12-1.30); Carboxyhemoglobin (COHb) 0.8 gm% (0.0-3.0); Hemoglobin (Hb) 13.8 g/dL (14.0-18.0); O2 Tension (PaO2), arterial 66.7 mmHg (> 60.0); Potassium - ABG Lab 5.13 mmol/L (3.70-5.30)
[2021-06-13 18:00] LABS: ALV-art Gradient 118.585 mmHg (0-20); Puncture Site LRA
[2021-06-13 19:34] LABS: Anion Gap 17 mmol/L (10-20); BUN (Urea Nitrogen) 44 mg/dL (8.4-25.7); Calc. Creatinine Clearance 0 mL/min (70-130); Calcium 8.7 mg/dL (7.8-10.44); Carbon Dioxide 20 mmol/L (23-31); Chloride 107 mmol/L (98-107); Glucose 211 mg/dL (83-110); Potassium 5.3 mmol/L (3.5-5.1); Sodium 139 mmol/L (136-145)
[2021-06-13 19:57] LABS: CKMB 5.2 ng/mL (0-6.6)
[2021-06-13 22:54] LABS: Troponin I 0.176 ng/mL (< 0.028)
[2021-06-14 01:40] LABS: Troponin I 0.162 ng/mL (< 0.028)
[2021-06-14 13:40] LABS: Bilirubin Negative (Negative); Blood, Urine 3+ (Negative); Clarity Turbid (Clear); Glucose, Urine (Dipstick) Normal (Negative); Ketone, Urine Negative (Negative); Leukocyte 250 Leu/uL (Negative); Nitrite Negative (Negative); Protein, Urine (Dipstick) 10 mg/dL (Neg-Trace); RBC/HPF Greater than 50 HPF (0-3); Specific Gravity, Urine 1.018 (1.002-1.036); Squamous Epithelial 0-3 HPF (0-3); Urobilinogen Normal mg/dL (Less than 2)
[2021-06-14 13:49] LABS: Bacteria/HPF 2+ HPF (None Seen)
[2021-06-15 04:42] LABS: #Lymphocytes 1.5 thou/uL (1.20-3.40); #Monocytes 0.9 thou/uL (0.11-0.59); #Neutrophils 9.7 thou/uL (1.40-6.50); %Basophils 0.2 % (0.0-1.0); %Eosinophils 0.4 % (0.0-10.0); %Lymphocytes 12.1 % (21.0-51.0); %Monocytes 7.5 % (0.0-10.0); %Neutrophils 79.7 % (42.0-75.0); Hemoglobin 13.4 g/dL (14.0-18.0); Mean Corpuscular HGB CONC 33.3 g/dL (32.0-36.0); Mean Platelet Volume 7.3 fL (7.4-10.4); Platelet Count 259 thou/uL (130-400); RBC Distribution Width 12.9 % (11.5-14.5); Red Blood Cell (RBC) Count 4.17 mill/uL (4.70-6.10); White Blood Cell (WBC) Count 12.1 thou/uL (4.8-10.8)
[2021-06-15 05:03] LABS: Anion Gap 14 mmol/L (10-20); BUN (Urea Nitrogen) 51 mg/dL (8.4-25.7); Calc. Creatinine Clearance 50 mL/min (70-130); Calcium 8.7 mg/dL (7.8-10.44); Carbon Dioxide 24 mmol/L (23-31); Chloride 107 mmol/L (98-107); Glucose 152 mg/dL (83-110); Sodium 141 mmol/L (136-145)
[2021-06-16 05:16] LABS: Anion Gap 13 mmol/L (10-20); BUN (Urea Nitrogen) 39 mg/dL (8.4-25.7); Calc. Creatinine Clearance 64 mL/min (70-130); Calcium 8.8 mg/dL (7.8-10.44); Carbon Dioxide 24 mmol/L (23-31); Chloride 110 mmol/L (98-107); Glucose 134 mg/dL (83-110); Potassium 3.8 mmol/L (3.5-5.1); Sodium 143 mmol/L (136-145)
[2021-06-17 04:18] LABS: #Eosinphils 0.3 thou/uL (0.0-0.7); #Lymphocytes 1.7 thou/uL (1.20-3.40); #Monocytes 0.5 thou/uL (0.11-0.59); #Neutrophils 6.8 thou/uL (1.40-6.50); %Basophils 0.1 % (0.0-1.0); %Eosinophils 3.3 % (0.0-10.0); %Monocytes 5.4 % (0.0-10.0); %Neutrophils 73.2 % (42.0-75.0); Hemoglobin 12.9 g/dL (14.0-18.0); Mean Corpuscular Hemoglobin 30.6 pg (27.0-31.0); Mean Corpuscular Volume 95.7 fL (78.0-98.0); Platelet Count 265 thou/uL (130-400); White Blood Cell (WBC) Count 9.3 thou/uL (4.8-10.8)
[2021-06-17 04:38] LABS: Anion Gap 13 mmol/L (10-20); BUN (Urea Nitrogen) 41 mg/dL (8.4-25.7); Calc. Creatinine Clearance 61 mL/min (70-130); Carbon Dioxide 26 mmol/L (23-31); Chloride 109 mmol/L (98-107); Glucose 141 mg/dL (83-110); Potassium 4.1 mmol/L (3.5-5.1); Sodium 144 mmol/L (136-145)
[2021-06-18 05:06] LABS: Anion Gap 14 mmol/L (10-20); BUN (Urea Nitrogen) 44 mg/dL (8.4-25.7); Calc. Creatinine Clearance 68 mL/min (70-130); Carbon Dioxide 24 mmol/L (23-31); Chloride 109 mmol/L (98-107); Glucose 143 mg/dL (83-110); Potassium 3.7 mmol/L (3.5-5.1); Sodium 143 mmol/L (136-145)
[2021-06-19 12:00] VITALS: BMI 32.7
[2021-06-20 04:52] LABS: Anion Gap 15 mmol/L (10-20); BUN (Urea Nitrogen) 39 mg/dL (8.4-25.7); Calc. Creatinine Clearance 633 mL/min (70-130); Carbon Dioxide 22 mmol/L (23-31); Chloride 108 mmol/L (98-107); Glucose 173 mg/dL (83-110); Potassium 3.5 mmol/L (3.5-5.1); Sodium 141 mmol/L (136-145)
[2021-06-22 05:00] LABS: #Eosinphils 0.2 thou/uL (0.0-0.7); #Lymphocytes 1.4 thou/uL (1.20-3.40); #Monocytes 0.9 thou/uL (0.11-0.59); #Neutrophils 8.4 thou/uL (1.40-6.50); %Basophils 0.2 % (0.0-1.0); %Eosinophils 2.3 % (0.0-10.0); %Lymphocytes 13.1 % (21.0-51.0); %Monocytes 7.8 % (0.0-10.0); %Neutrophils 76.6 % (42.0-75.0); Mean Corpuscular HGB CONC 34.2 g/dL (32.0-36.0); Mean Corpuscular Hemoglobin 32.1 pg (27.0-31.0); Platelet Count 255 thou/uL (130-400); RBC Distribution Width 12.6 % (11.5-14.5); Red Blood Cell (RBC) Count 4.37 mill/uL (4.70-6.10); White Blood Cell (WBC) Count 10.9 thou/uL (4.8-10.8)
[2021-06-22 05:16] LABS: ALT (SGPT) 48 U/L (8-55); AST (SGOT) 89 U/L (5-34); Albumin 3.5 g/dL (3.4-4.8); Alkaline Phosphatase 130 U/L (40-110); Anion Gap 15 mmol/L (10-20); BUN (Urea Nitrogen) 40 mg/dL (8.4-25.7); Bilirubin, Total 1.2 mg/dL (0.2-1.2); Calc. Creatinine Clearance 66 mL/min (70-130); Calcium 9.2 mg/dL (7.8-10.44); Carbon Dioxide 23 mmol/L (23-31); Chloride 105 mmol/L (98-107); Globulin 2.8 g/dL (2.4-3.5); Glucose 147 mg/dL (83-110); Magnesium 2.3 mg/dL (1.6-2.6); Potassium 3.8 mmol/L (3.5-5.1); Protein, Total 6.3 g/dL (5.8-8.1); Sodium 139 mmol/L (136-145)
[2021-06-23 15:48] VITALS: BP 113/80; TEMP 98.6
== END 2021-06-23 17:23 | DRG 291 ==
LOC: ERS 17:24 → 2NO 21:38
PROVIDERS: ADMIT Student in an Organized Health Care Education/Training Program; ATTEND Internal Medicine
DX: I13.0 Hypertensive heart and chronic kidney disease with heart failure and stage 1 through stage 4 chronic kidney disease, or unspecified chronic kidney disease (principal); I50.43 Acute on chronic combined systolic (congestive) and diastolic (congestive) heart failure; J96.01 Acute respiratory failure with hypoxia; E87.1 Hypo-osmolality and hyponatremia; N17.9 Acute kidney failure, unspecified; I47.2 Ventricular tachycardia; I42.9 Cardiomyopathy, unspecified; G20 Parkinson's disease; F32.A Depression, unspecified; G89.29 Other chronic pain; N18.31 Chronic kidney disease, stage 3a; I35.0 Nonrheumatic aortic (valve) stenosis; I48.91 Unspecified atrial fibrillation; N40.0 Benign prostatic hyperplasia without lower urinary tract symptoms; F41.9 Anxiety disorder, unspecified; E66.9 Obesity, unspecified; R53.81 Other malaise; Z68.33 Body mass index [BMI] 33.0-33.9, adult; Z85.46 Personal history of malignant neoplasm of prostate; Z98.890 Other specified postprocedural states; Z89.421 Acquired absence of other right toe(s); Z79.899 Other long term (current) drug therapy; Z91.81 History of falling
CPT/HCPCS: 36415; 36416; 36600; 71045; 74230; 76770; 80048; 80053; 81001; 82553; 82805; 83605; 83735; 84100; 84484; 85025; 87040; 93005; 93010; 93306; 96374; J0282; J0696; J1644; J1650; J1940; J3490; J7070; J7512